=== PATIENT | female | born 1980 | race African-American/Black ===

== ENCOUNTER 2016-10-08 13:21 | Inpatient (IN) | payer MEDICAID ==
[~2016-10-08] VITALS: Ht 165.1 cm; Wt 70.8 kg
[~2016-10-08 13:21] MED LIST: FOLI-43 PO; KEPP500 PO; LACO100T2 PO; PHEN100C4 PO
[2016-10-08 14:30] LABS: CLARITY URINE CLOUDY (CLEAR); COLOR URINE DARK YELLOW (YELLOW); GLUCOSE URINE NEGATIVE (NEGATIVE); KETONES URINE 2+ (NEGATIVE); LEUKOCYTE ESTERASE URINE NEGATIVE (NEGATIVE); NITRITE URINE NEGATIVE (NEGATIVE); OCCULT BLOOD URINE NEGATIVE (NEGATIVE); PH URINE 7.5 (4.5-8.0); PROTEIN URINE NEGATIVE (NEGATIVE); SPECIFIC GRAVITY URINE 1.025 (1.005-1.030)
[2016-10-08 14:34] LABS: BASOPHILS % 1.2 % (0.0-2.0); EOSINOPHILS % 1.2 % (0.0-5.0); HEMATOCRIT. 34.6 % (36.0-48.0); HEMOGLOBIN. 11.7 g/dL (12.0-16.0); MEAN CORPUSCULAR HEMOGLOBIN 29.1 pg (28.0-32.0); MEAN CORPUSCULAR VOLUME 86.3 fL (81.0-99.0); MEAN PLATELET VOLUME 7.4 fl (7.4-10.4); MONOCYTES % 10.3 % (2.0-8.0); NEUTROPHILS % 66.3 % (40.0-76.0); PLATELET 353 x1000/uL (130-400); RED BLOOD CELL COUNT 4.01 mill/uL (4.2-5.4); RED CELL DISTRIBUTION WIDTH 12.8 % (11.6-14.6)
[2016-10-08 14:39] LABS: HCG SCREEN POSITIVE
[2016-10-08 14:40] LABS: INR 1.1
[2016-10-08 14:50] LABS: CARBON DIOXIDE 24 mEq/L (21-32); CHLORIDE 106 mEq/L (98-107); ETHANOL BLOOD < 10 mg/dL
[2016-10-08 14:56] LABS: PHENYTOIN 1.1 ug/mL (10-20)
[2016-10-08 14:59] LABS: *AMPHETAMINES SCREEN URINE NEGATIVE (NEGATIVE); *BARBITURATES SCREEN URINE NEGATIVE (NEGATIVE); *BENZODIAZEPINES SCREEN URINE NEGATIVE (NEGATIVE); *COCAINE SCREEN URINE NEGATIVE (NEGATIVE); METHADONE URINE SCREEN NEGATIVE (NEGATIVE); OPIATES URINE SCREEN NEGATIVE (NEGATIVE); PHENCYCLIDINE URINE SCREEN NEGATIVE (NEGATIVE)
[2016-10-08 15:02] LABS: CANNABINOID URINE SCREEN PRESUMTIVE POSITIVE (NEGATIVE)
[2016-10-08 15:02] LABS: CARBAMAZEPINE < 0.5 ug/mL (4-12); PHENOBARBITAL < 2.1 ug/mL (15.0-40.0); VALPROIC ACID < 3.0 ug/mL (50-100)
[2016-10-08] MEDS ORDERED: LEVETIRACETAM 500MG PREMIX 100 ML IV ONE (15:15)
[2016-10-08] MEDS ORDERED: SODIUM CHLORIDE 0.9% 1000ML BAG (SEPSIS BOLUS) IV ONE (16:15)
[2016-10-08] MEDS ORDERED: SODIUM CHLORIDE 0.9% 2,400 ML IV NR (16:15)
[2016-10-08] MEDS ORDERED: ONDANSETRON HCL 4MG/2ML VIAL IV PRN (17:30)
[2016-10-08] MEDS ORDERED: ACETAMINOPHEN 325MG TABLET PO PRN (17:30)
[2016-10-08] MEDS ORDERED: IPRATROPIUM/ALBUTEROL 0.5-3(2.5)MG/3ML NEB INH PRN (17:30)
[2016-10-08] MEDS ORDERED: POTASSIUM CHLORIDE 20MEQ TABLET SR PO NR (17:30)
[2016-10-08] MEDS ORDERED: DIPHENHYDRAMINE 50MG/ML VIAL IV PRN (17:30)
[2016-10-08 20:00] VITALS: BP 148/84
[2016-10-08 21:26] VITALS: BP 148/84
[2016-10-08] MEDS ORDERED: LEVETIRACETAM 500MG PREMIX 100 ML IV SCH ×2 (22:00→23:32)
[2016-10-08] MEDS: LEVETIRACETAM 500 MG in SODIUM CHLORIDE 0.9% 100 ML IV SCH (23:50)
[2016-10-09] VITALS (31 sets, daily range): BP systolic 108–147; BP diastolic 36–98
[2016-10-09 06:43] LABS: BASOPHILS % 1.2 % (0.0-2.0); HEMATOCRIT. 34.8 % (36.0-48.0); HEMOGLOBIN. 11.7 g/dL (12.0-16.0); LYMPHOCYTES % 28.8 % (20.0-50.0); MEAN CORPUSCULAR HEMOGLOBIN 29.3 pg (28.0-32.0); MEAN CORPUSCULAR VOLUME 86.7 fL (81.0-99.0); MEAN PLATELET VOLUME 7.6 fl (7.4-10.4); MONOCYTES % 10.7 % (2.0-8.0); NEUTROPHILS % 55.3 % (40.0-76.0); PLATELET 356 x1000/uL (130-400); RED BLOOD CELL COUNT 4.01 mill/uL (4.2-5.4); RED CELL DISTRIBUTION WIDTH 12.8 % (11.6-14.6)
[2016-10-09 07:14] LABS: CARBON DIOXIDE 22 mEq/L (21-32); CHLORIDE 107 mEq/L (98-107); HDL CHOLESTEROL 65 mg/dL (40-59); LDL CHOLESTEROL 60 mg/dL (5-100)
[2016-10-09] MEDS ORDERED: NON FORMULARY PATIENT HOME MED EA XX SCH ×2 (08:15→12:30)
[2016-10-09] MEDS: LEVETIRACETAM 500 MG in SODIUM CHLORIDE 0.9% 100 ML IV SCH ×2 (09:18→22:15)
[2016-10-09] MEDS: PRENATAL VIT/FE FUMARATE/FA TABLET PO SCH (09:18)
[2016-10-09] MEDS ORDERED: LORAZEPAM 2MG/ML CPJ IV PRN (12:15)
[2016-10-09] MEDS ORDERED: LACOSAMIDE 200 MG TABLET (VIMPAT) PO SCH (14:00)
[2016-10-09] MEDS: SODIUM CHLORIDE 0.9% 1,000 ML IV SCH (19:22)
[2016-10-09] MEDS: LACOSAMIDE 50 MG PO SCH ×2 (22:09→23:10)
[2016-10-10] VITALS (70 sets, daily range): BP systolic 88–140; BP diastolic 19–103
[2016-10-10] MEDS: SODIUM CHLORIDE 0.9% 1,000 ML IV SCH (08:56)
[2016-10-10] MEDS: LEVETIRACETAM 500 MG in SODIUM CHLORIDE 0.9% 100 ML IV SCH ×2 (08:59→22:33)
[2016-10-10] MEDS: LACOSAMIDE 50 MG PO SCH (09:35)
[2016-10-10] MEDS: PRENATAL VIT/FE FUMARATE/FA TABLET PO SCH (09:35)
[2016-10-10] MEDS: ENOXAPARIN 40MG/0.4ML SYR SUBCUT SCH (11:37)
[2016-10-10] MEDS: LACOSAMIDE 200 MG TABLET (VIMPAT) PO SCH (23:13)
[2016-10-11] VITALS: BP 105/54
[2016-10-11 04:00] VITALS: BP 111/64
[2016-10-11 08:00] VITALS: BP 116/76
[2016-10-11] MEDS: LEVETIRACETAM 500 MG in SODIUM CHLORIDE 0.9% 100 ML IV SCH (09:00)
[2016-10-11] MEDS: PRENATAL VIT/FE FUMARATE/FA TABLET PO SCH (09:00)
[2016-10-11] MEDS: ENOXAPARIN 40MG/0.4ML SYR SUBCUT SCH (09:00)
[2016-10-11] MEDS: LACOSAMIDE 200 MG TABLET (VIMPAT) PO SCH (09:00)
[2016-10-11] MEDS ORDERED: KEPP500 PO (10:42)
[2016-10-11] MEDS ORDERED: LACO200T2 PO (10:42)
[2016-10-11 11:31] VITALS: BP 125/81
[2016-10-11 12:00] VITALS: BP 125/52
== END 2016-10-11 12:23 | disposition home or self-care (01) | DRG 566 ==
LOC: ER 14:20 → EDBEDREQSVC 14:29 → EDBEDREQ 14:29 → EDBEDREQTM 14:29 → 5WST 16:12 → EDBEDREQTM 16:15 → EDBEDREQ 16:15 → ENRESERV 19:43 → MICUNO 10-09 17:00 → 8WST 10-10 18:23
PROVIDERS: ADMIT Internal Medicine; ATTEND Internal Medicine
DX: O99.351 Diseases of the nervous system complicating pregnancy, first trimester (principal); G40.911 Epilepsy, unspecified, intractable, with status epilepticus; O16.1 Unspecified maternal hypertension, first trimester; O99.011 Anemia complicating pregnancy, first trimester; E87.6 Hypokalemia; F12.90 Cannabis use, unspecified, uncomplicated; D64.9 Anemia, unspecified; O99.281 Endocrine, nutritional and metabolic diseases complicating pregnancy, first trimester; O99.321 Drug use complicating pregnancy, first trimester; Z3A.01 Less than 8 weeks gestation of pregnancy; Z91.14 Patient's other noncompliance with medication regimen; Z79.899 Other long term (current) drug therapy
CPT/HCPCS: 36415; 70551; 76801; 80053; 80061; 80156; 80165; 80184; 80185; 80305; 80339; 81001; 81025; 82962; 83605; 84703; 85025; 85610; 87040; 93005; 93970; 96365; 99285; G0482; J1650; J1953; J2060; J2405; J7030; J7040; J7050

== ENCOUNTER 2018-08-20 12:43 | Emergency (ER) | payer MEDICAID ==
[~2018-08-20] VITALS: Ht 167.6 cm; Wt 61.0 kg
[~2018-08-20 12:43] MED LIST changes: -LACO100T2 PO; +LACO200T2 PO; -PHEN100C4 PO
[2018-08-20 12:56] VITALS: BP 140/101
== END 2018-08-20 13:54 | disposition home or self-care (01) ==
LOC: ER 13:46
DX: S51.011A Laceration without foreign body of right elbow, initial encounter (principal); L08.9 Local infection of the skin and subcutaneous tissue, unspecified; G40.909 Epilepsy, unspecified, not intractable, without status epilepticus; W25.XXXA Contact with sharp glass, initial encounter; Y93.89 Activity, other specified; Y92.018 Other place in single-family (private) house as the place of occurrence of the external cause
CPT/HCPCS: 99283

== ENCOUNTER 2018-08-29 12:05 | Emergency (ER) | payer MEDICAID ==
[~2018-08-29] VITALS: Ht 167.6 cm; Wt 59.0 kg
[2018-08-29] MEDS ORDERED: TETANUS, DIPHTHERIA, PERTUSSIS VAC/PF 0.5ML (>7YR OLD) IM ONE (14:45)
[2018-08-29 15:21] VITALS: BP 134/91
== END 2018-08-29 15:58 | disposition home or self-care (01) ==
LOC: ER 12:19
DX: S41.111D Laceration without foreign body of right upper arm, subsequent encounter (principal); X58.XXXD Exposure to other specified factors, subsequent encounter
CPT/HCPCS: 90471; 90715; 99283

== ENCOUNTER 2018-12-24 12:32 | Emergency (ER) | payer MEDICAID ==
[~2018-12-24] VITALS: Ht 167.6 cm; Wt 60.0 kg
[2018-12-24] MEDS ORDERED: LORAZEPAM 2MG/ML CPJ ONE (12:55)
[2018-12-24] MEDS ORDERED: LORAZEPAM 2MG/ML CPJ IV ONE (13:00)
[2018-12-24] MEDS ORDERED: LEVETIRACETAM 500MG PREMIX 100 ML IV ONE (13:30)
[2018-12-24 14:05] LABS: BASOPHILS % 0.3 % (0.0-2.0); EOSINOPHILS % 0.3 % (0.0-5.0); HEMOGLOBIN. 13.2 g/dL (12.0-16.0); LYMPHOCYTES % 28.9 % (20.0-50.0); MEAN CORPUSCULAR HEMOGLOBIN 28.1 pg (28.0-32.0); MEAN CORPUSCULAR VOLUME 85.1 fL (81.0-99.0); MEAN PLATELET VOLUME 7.2 fl (7.4-10.4); NEUTROPHILS % 64.5 % (40.0-76.0); PLATELET 432 x1000/uL (130-400); RED BLOOD CELL COUNT 4.71 mill/uL (4.2-5.4); RED CELL DISTRIBUTION WIDTH 15.2 % (11.6-14.6)
[2018-12-24 14:12] LABS: CHLORIDE 109 mEq/L (98-107)
[2018-12-24 14:14] LABS: HCG SCREEN NEGATIVE
[2018-12-24 15:05] VITALS: BP 124/82
== END 2018-12-24 15:44 | disposition home or self-care (01) ==
LOC: ER 12:32
DX: G40.909 Epilepsy, unspecified, not intractable, without status epilepticus (principal); I10 Essential (primary) hypertension
CPT/HCPCS: 36415; 80053; 84703; 85025; 96374; 96375; 99283; J1953; J2060

== ENCOUNTER 2019-01-01 07:15 | Emergency (ER) | payer MEDICAID ==
[~2019-01-01] VITALS: Ht 165.1 cm; Wt 68.0 kg
[2019-01-01] MEDS ORDERED: SODIUM CHLORIDE 0.9% 1,000 ML IV ONE (07:34)
[2019-01-01] MEDS ORDERED: LEVETIRACETAM 500MG PREMIX 100 ML IV ONE (07:45)
[2019-01-01 08:13] LABS: BASOPHILS % 0.3 % (0.0-2.0); EOSINOPHILS % 1.7 % (0.0-5.0); HEMATOCRIT. 35.7 % (36.0-48.0); HEMOGLOBIN. 11.7 g/dL (12.0-16.0); LYMPHOCYTES % 29.5 % (20.0-50.0); MEAN CORPUSCULAR HEMOGLOBIN 28.1 pg (28.0-32.0); MEAN PLATELET VOLUME 7.9 fl (7.4-10.4); MONOCYTES % 8.7 % (2.0-8.0); NEUTROPHILS % 59.8 % (40.0-76.0); PLATELET 315 x1000/uL (130-400); RED BLOOD CELL COUNT 4.16 mill/uL (4.2-5.4); RED CELL DISTRIBUTION WIDTH 15.1 % (11.6-14.6)
[2019-01-01 08:15] LABS: CLARITY URINE CLEAR (CLEAR); COLOR URINE YELLOW (YELLOW); KETONES URINE 1+ (NEGATIVE); LEUKOCYTE ESTERASE URINE NEGATIVE (NEGATIVE); NITRITE URINE NEGATIVE (NEGATIVE); OCCULT BLOOD URINE NEGATIVE (NEGATIVE); PH URINE 5.5 (4.5-8.0); PROTEIN URINE 1+ (NEGATIVE); UROBILINOGEN URINE 0.2 E.U./dL (0.2-1.0)
[2019-01-01 08:20] LABS: CHLORIDE 111 mEq/L (98-107)
[2019-01-01 08:23] LABS: ETHANOL BLOOD 186 mg/dL
[2019-01-01 09:13] LABS: *AMPHETAMINES SCREEN URINE NEGATIVE (NEGATIVE); *BARBITURATES SCREEN URINE NEGATIVE (NEGATIVE)
[2019-01-01 09:14] LABS: *BENZODIAZEPINES SCREEN URINE PRESUMTIVE POSITIVE (NEGATIVE); *COCAINE SCREEN URINE NEGATIVE (NEGATIVE); CANNABINOID URINE SCREEN PRESUMTIVE POSITIVE (NEGATIVE); METHADONE URINE SCREEN NEGATIVE (NEGATIVE); OPIATES URINE SCREEN NEGATIVE (NEGATIVE); PHENCYCLIDINE URINE SCREEN NEGATIVE (NEGATIVE)
[2019-01-01 10:45] VITALS: BP 130/87
== END 2019-01-01 10:45 | disposition home or self-care (01) ==
LOC: ER 07:15
DX: G40.909 Epilepsy, unspecified, not intractable, without status epilepticus (principal); I10 Essential (primary) hypertension
CPT/HCPCS: 36415; 70450; 71045; 80053; 80305; 80320; 81003; 81025; 85025; 96365; 99284; J1953; J7030; G0480

== ENCOUNTER 2019-03-12 10:44 | Emergency (ER) | payer MEDICAID ==
[~2019-03-12] VITALS: Ht 170.2 cm; Wt 73.0 kg
[2019-03-12] MEDS ORDERED: SODIUM CHLORIDE 0.9% 1,000 ML IV ONE (10:56)
[2019-03-12 11:32] LABS: BASOPHILS % 1.5 % (0.0-2.0); CHLORIDE 106 mEq/L (98-107); EOSINOPHILS % 2.2 % (0.0-5.0); HEMOGLOBIN. 12.1 g/dL (12.0-16.0); MEAN CORPUSCULAR HEMOGLOBIN 28.5 pg (28.0-32.0); MEAN CORPUSCULAR VOLUME 84.8 fL (81.0-99.0); MONOCYTES % 10.5 % (2.0-8.0); NEUTROPHILS % 44.8 % (40.0-76.0); PLATELET 325 x1000/uL (130-400); RED BLOOD CELL COUNT 4.25 mill/uL (4.2-5.4); RED CELL DISTRIBUTION WIDTH 15.4 % (11.6-14.6)
[2019-03-12 11:36] LABS: ETHANOL BLOOD < 10 mg/dL
[2019-03-12 12:03] LABS: BG BASE EXCESS 2.1 mmol/L (-2.0-2.0); BG CARBOXYHEMOGLOBIN 0.4 % (0.5-1.5); BG DEOXYHEMOGLOBIN 3.4 % (0.0-5.0); BG FRACTION INSPIRED OXYGEN 21; BG HCO3 ACT 26.7 mmol/L (22.0-26.0); BG METHEMOGLOBIN 0.3 % (0.0-1.5); BG OXYGEN SATURATION 96.6 % (92.0-98.5); BG OXYHEMOGLOBIN 95.9 % (94.0-97.0); BG PCO2 41.4 mmHg (35.0-45.0); BG PH 7.427 (7.350-7.450); BG SAMPLE SITE RIGHT BRACHIAL; BG TOTAL HEMOGLOBIN 11.5 g/dL (12.0-18.0); BG VENT MODE ROOM AIR
[2019-03-12] MEDS ORDERED: LEVETIRACETAM 500MG PREMIX 100 ML IV ONE (12:15)
[2019-03-12 12:30] VITALS: BP 141/80
== END 2019-03-12 12:32 | disposition home or self-care (01) ==
LOC: ER 10:44
DX: G40.909 Epilepsy, unspecified, not intractable, without status epilepticus (principal); I10 Essential (primary) hypertension; Z91.14 Patient's other noncompliance with medication regimen
CPT/HCPCS: 36415; 36600; 80053; 80320; 82375; 82805; 82962; 83880; 85025; 96374; 99283; J7030; G0480

== ENCOUNTER 2019-03-27 09:34 | Inpatient (IN) | payer MEDICAID ==
[~2019-03-27] VITALS: Ht 170.2 cm; Wt 59.0 kg
[2019-03-27] MEDS ORDERED: SODIUM CHLORIDE 0.9% 1,000 ML IV ONE (10:29)
[2019-03-27 10:38] LABS: BASOPHILS % 2.3 % (0.0-2.0); EOSINOPHILS % 1.4 % (0.0-5.0); HEMATOCRIT. 39.2 % (36.0-48.0); HEMOGLOBIN. 12.7 g/dL (12.0-16.0); LYMPHOCYTES % 42.7 % (20.0-50.0); MEAN CORPUSCULAR HEMOGLOBIN 27.8 pg (28.0-32.0); MEAN CORPUSCULAR VOLUME 85.7 fL (81.0-99.0); MEAN PLATELET VOLUME 8.9 fl (7.4-10.4); MONOCYTES % 8.3 % (2.0-8.0); NEUTROPHILS % 45.3 % (40.0-76.0); PLATELET 347 x1000/uL (130-400); RED BLOOD CELL COUNT 4.57 mill/uL (4.2-5.4); RED CELL DISTRIBUTION WIDTH 15.8 % (11.6-14.6)
[2019-03-27 10:42] LABS: CLARITY URINE CLEAR (CLEAR); COLOR URINE YELLOW (YELLOW); KETONES URINE TRACE (NEGATIVE); LEUKOCYTE ESTERASE URINE NEGATIVE (NEGATIVE); NITRITE URINE NEGATIVE (NEGATIVE); OCCULT BLOOD URINE NEGATIVE (NEGATIVE); PH URINE 5.5 (4.5-8.0); PROTEIN URINE NEGATIVE (NEGATIVE); UROBILINOGEN URINE 0.2 E.U./dL (0.2-1.0)
[2019-03-27 10:47] LABS: CHLORIDE 108 mEq/L (98-107)
[2019-03-27 10:51] LABS: ETHANOL BLOOD 65 mg/dL
[2019-03-27 10:58] LABS: HCG SCREEN NEGATIVE
[2019-03-27 10:59] LABS: *COCAINE SCREEN URINE NEGATIVE (NEGATIVE)
[2019-03-27 11:00] LABS: METHADONE URINE SCREEN NEGATIVE (NEGATIVE); PHENCYCLIDINE URINE SCREEN NEGATIVE (NEGATIVE)
[2019-03-27 11:01] LABS: *AMPHETAMINES SCREEN URINE NEGATIVE (NEGATIVE); *BARBITURATES SCREEN URINE NEGATIVE (NEGATIVE)
[2019-03-27 11:02] LABS: *BENZODIAZEPINES SCREEN URINE NEGATIVE (NEGATIVE)
[2019-03-27] MEDS ORDERED: HYDROCODONE/ACETAMINOPHEN 5/325MG TABLET PO ONE (11:30)
[2019-03-27] MEDS ORDERED: LEVETIRACETAM 1000MG/100ML 100 ML IV ONE (11:30)
[2019-03-27 11:45] LABS: OPIATES URINE SCREEN NEGATIVE (NEGATIVE)
[2019-03-27 11:48] LABS: CANNABINOID URINE SCREEN PRESUMTIVE POSITIVE (NEGATIVE)
[2019-03-27] MEDS ORDERED: LORAZEPAM 2MG/ML CPJ IV ONE (12:30)
[2019-03-27] MEDS ORDERED: DEXT 5%/0.45% NACL KCL 20MEQ/L 1,000 ML IV ONE (13:34)
[2019-03-27] MEDS ORDERED: CLONIDINE 0.1MG TABLET PO PRN (14:00)
[2019-03-27] MEDS ORDERED: ONDANSETRON HCL 4MG/2ML INJ IV PRN (14:00)
[2019-03-27] MEDS ORDERED: LORAZEPAM 2MG/ML CPJ IV PRN (14:00)
[2019-03-27] MEDS ORDERED: DIPHENHYDRAMINE 50MG/ML VIAL IV PRN (14:00)
[2019-03-27] MEDS ORDERED: ACETAMINOPHEN 325MG TABLET PO PRN (14:00)
[2019-03-27] MEDS ORDERED: IPRATROPIUM/ALBUTEROL 0.5-3(2.5)MG/3ML NEB HHN PRN (14:00)
[2019-03-27 20:00] VITALS: BP 136/86
[2019-03-27] MEDS ORDERED: ENOXAPARIN 40MG/0.4ML SYR SUBCUT SCH (20:00)
[2019-03-27] MEDS: LEVETIRACETAM 500MG PREMIX 100 ML IV SCH (21:40)
[2019-03-28] VITALS: BP 123/70
[2019-03-28 04:00] VITALS: BP 132/86
[2019-03-28 07:33] LABS: CHLORIDE 107 mEq/L (98-107)
[2019-03-28 07:38] LABS: BASOPHILS % 1.2 % (0.0-2.0); EOSINOPHILS % 3.2 % (0.0-5.0); HEMATOCRIT. 33.6 % (36.0-48.0); HEMOGLOBIN. 10.9 g/dL (12.0-16.0); LYMPHOCYTES % 43.2 % (20.0-50.0); MEAN CORPUSCULAR HEMOGLOBIN 27.8 pg (28.0-32.0); MEAN CORPUSCULAR VOLUME 85.7 fL (81.0-99.0); MEAN PLATELET VOLUME 8.4 fl (7.4-10.4); MONOCYTES % 13.5 % (2.0-8.0); NEUTROPHILS % 38.9 % (40.0-76.0); PLATELET 307 x1000/uL (130-400); RED BLOOD CELL COUNT 3.91 mill/uL (4.2-5.4); RED CELL DISTRIBUTION WIDTH 15.7 % (11.6-14.6)
[2019-03-28 07:41] LABS: LDL CHOLESTEROL 77 mg/dL (5-100)
[2019-03-28 07:43] LABS: HDL CHOLESTEROL 69 mg/dL (40-59)
[2019-03-28 08:00] VITALS: BP 129/73
[2019-03-28] MEDS: LEVETIRACETAM 500MG PREMIX 100 ML IV SCH (08:58)
[2019-03-28 12:16] VITALS: BP 129/73
== END 2019-03-28 14:25 | disposition home or self-care (01) | DRG 53 ==
LOC: ER 09:34 → 7WST 13:35 → EDBEDREQ 13:57 → ENRESERV 18:38
PROVIDERS: ADMIT Internal Medicine; ATTEND Internal Medicine
DX: G40.409 Other generalized epilepsy and epileptic syndromes, not intractable, without status epilepticus (principal); F10.129 Alcohol abuse with intoxication, unspecified; I10 Essential (primary) hypertension; Y90.3 Blood alcohol level of 60-79 mg/100 ml; Z79.899 Other long term (current) drug therapy; Z71.41 Alcohol abuse counseling and surveillance of alcoholic
CPT/HCPCS: 36415; 80048; 80053; 80061; 80305; 80320; 81003; 84443; 84703; 85025; 93970; 94640; 96365; 99291; J1650; J1953; J2060; J2405; J7030; G0480

== ENCOUNTER 2019-03-29 10:44 | Inpatient (IN) | payer MEDICAID ==
[~2019-03-29] VITALS: Ht 170.2 cm; Wt 73.0 kg
[2019-03-29] MEDS ORDERED: LORAZEPAM 2MG/ML CPJ ONE ×2 (10:52→11:03)
[2019-03-29] MEDS ORDERED: LORAZEPAM 2MG/ML CPJ IV ONE (11:00)
[2019-03-29] MEDS ORDERED: LEVETIRACETAM 1000MG/100ML 100 ML IV ONE (11:00)
[2019-03-29 11:38] LABS: BASOPHILS % 1.4 % (0.0-2.0); HEMATOCRIT. 32.3 % (36.0-48.0); HEMOGLOBIN. 10.6 g/dL (12.0-16.0); LYMPHOCYTES % 30.7 % (20.0-50.0); MEAN CORPUSCULAR VOLUME 85.1 fL (81.0-99.0); MEAN PLATELET VOLUME 7.3 fl (7.4-10.4); MONOCYTES % 10.8 % (2.0-8.0); NEUTROPHILS % 54.1 % (40.0-76.0); PLATELET 314 x1000/uL (130-400); RED BLOOD CELL COUNT 3.79 mill/uL (4.2-5.4); RED CELL DISTRIBUTION WIDTH 15.7 % (11.6-14.6)
[2019-03-29 11:42] LABS: CHLORIDE 110 mEq/L (98-107)
[2019-03-29 11:45] LABS: ETHANOL BLOOD 62 mg/dL
[2019-03-29 12:18] LABS: CLARITY URINE CLOUDY (CLEAR); COLOR URINE YELLOW (YELLOW); KETONES URINE TRACE (NEGATIVE); LEUKOCYTE ESTERASE URINE 1+ (NEGATIVE); NITRITE URINE NEGATIVE (NEGATIVE); OCCULT BLOOD URINE NEGATIVE (NEGATIVE); PH URINE 6.5 (4.5-8.0); PROTEIN URINE NEGATIVE (NEGATIVE); SPECIFIC GRAVITY URINE 1.021 (1.005-1.030)
[2019-03-29 12:37] LABS: *AMPHETAMINES SCREEN URINE NEGATIVE (NEGATIVE); *BARBITURATES SCREEN URINE NEGATIVE (NEGATIVE); METHADONE URINE SCREEN NEGATIVE (NEGATIVE); PHENCYCLIDINE URINE SCREEN NEGATIVE (NEGATIVE)
[2019-03-29 12:38] LABS: *COCAINE SCREEN URINE NEGATIVE (NEGATIVE)
[2019-03-29 12:40] LABS: OPIATES URINE SCREEN NEGATIVE (NEGATIVE)
[2019-03-29 12:44] LABS: *BENZODIAZEPINES SCREEN URINE PRESUMTIVE POSITIVE (NEGATIVE); CANNABINOID URINE SCREEN PRESUMTIVE POSITIVE (NEGATIVE)
[2019-03-29] MEDS ORDERED: ONDANSETRON HCL 4MG/2ML INJ IV PRN (17:45)
[2019-03-29] MEDS ORDERED: DOCUSATE SODIUM 100MG CAPSULE PO PRN (17:45)
[2019-03-29] MEDS ORDERED: ACETAMINOPHEN 325MG TABLET PO PRN (17:45)
[2019-03-29] MEDS ORDERED: NON FORMULARY PATIENT HOME MED XX SCH (17:45)
[2019-03-29] MEDS ORDERED: LORAZEPAM 0.5MG TABLET PO PRN (17:45)
[2019-03-29] MEDS ORDERED: GUAIFENESIN 200MG/10ML SUGAR FREE UDC PO PRN (17:45)
[2019-03-29] MEDS ORDERED: HYDROCODONE/ACETAMINOPHEN 5/325MG TABLET PO PRN (17:45)
[2019-03-29] MEDS ORDERED: IPRATROPIUM/ALBUTEROL 0.5-3(2.5)MG/3ML NEB HHN PRN (17:45)
[2019-03-29 18:33] LABS: HCG SCREEN NEGATIVE
[2019-03-29 22:10] VITALS: BP 151/93
[2019-03-29 22:30] VITALS: BP 151/93
[2019-03-29] MEDS: CHLORDIAZEPOXIDE 25MG CAPSULE PO SCH (22:51)
[2019-03-29] MEDS ORDERED: MVI, ADULT NO.1 10 ML, FOLIC ACID 1 MG, THIAMINE HCL 100 MG in SODIUM CHLORIDE 0.9% 1,0... IV SCH ×4 (23:50)
[2019-03-30] VITALS (19 sets, daily range): BP systolic 125–164; BP diastolic 63–105
[2019-03-30] MEDS: LEVETIRACETAM 500 MG in SODIUM CHLORIDE 0.9% 100 ML IV SCH ×2 (01:20→08:25)
[2019-03-30] MEDS: SODIUM CHLORIDE 0.9% 1,000 ML IV SCH ×3 (01:21→12:54)
[2019-03-30] MEDS: CHLORDIAZEPOXIDE 25MG CAPSULE PO SCH ×3 (06:27→23:07)
[2019-03-30 07:51] LABS: TOTAL IRON BINDING CAPACITY 244 ug/dL (250-450)
[2019-03-30] MEDS: LORAZEPAM 2MG/ML CPJ IV PRN ×2 (08:10→13:57)
[2019-03-30 08:29] LABS: VITAMIN B12 SERUM 715 pg/mL (211-911)
[2019-03-30 08:33] LABS: FOLIC ACID (FOLATE) SERUM > 20.00 ng/mL (>5.38)
[2019-03-30] MEDS: FOLIC ACID 1MG TABLET PO SCH (08:41)
[2019-03-30 11:52] LABS: FERRITIN 35 ng/mL (10-291)
[2019-03-30] MEDS: CLONIDINE 0.1MG TABLET PO PRN (14:54)
[2019-03-30] MEDS: LACOSAMIDE 100 MG TABLET PO SCH ×2 (17:47→23:07)
[2019-03-30] MEDS ORDERED: LACOSAMIDE 100 MG TABLET PO SCH (21:00)
[2019-03-30] MEDS: LEVETIRACETAM 1,000 MG in SODIUM CHLORIDE 0.9% 100 ML IV SCH (23:07)
[2019-03-31] VITALS: BP 127/79
[2019-03-31] MEDS: SODIUM CHLORIDE 0.9% 1,000 ML IV SCH (02:32)
[2019-03-31 04:00] VITALS: BP 140/95
[2019-03-31] MEDS: CHLORDIAZEPOXIDE 25MG CAPSULE PO SCH ×3 (06:08→21:46)
[2019-03-31] MEDS: CLONIDINE 0.1MG TABLET PO PRN ×2 (06:18→12:40)
[2019-03-31 08:00] VITALS: BP_SYST 138; BP_SYST 144; BP_DIAS 91; BP_DIAS 96
[2019-03-31] MEDS: LEVETIRACETAM 1,000 MG in SODIUM CHLORIDE 0.9% 100 ML IV SCH ×2 (09:41→21:46)
[2019-03-31] MEDS: FOLIC ACID 1MG TABLET PO SCH (09:41)
[2019-03-31] MEDS: LACOSAMIDE 100 MG TABLET PO SCH ×2 (09:42→21:46)
[2019-03-31] MEDS: POLYETHYLENE GLYCOL 3350 (17GM) 1 DOSE PACK PO SCH (10:00)
[2019-03-31] MEDS: LORAZEPAM 2MG/ML CPJ IV PRN ×2 (11:35→17:15)
[2019-03-31 12:00] VITALS: BP 138/91
[2019-03-31 16:00] VITALS: BP 119/81
[2019-03-31 20:00] VITALS: BP 120/84
[2019-04-01] VITALS: BP 130/85
[2019-04-01] MEDS: CHLORDIAZEPOXIDE 25MG CAPSULE PO SCH (03:37)
[2019-04-01 04:00] VITALS: BP 137/68
[2019-04-01] MEDS: POLYETHYLENE GLYCOL 3350 (17GM) 1 DOSE PACK PO SCH (09:25)
[2019-04-01] MEDS: LEVETIRACETAM 1,000 MG in SODIUM CHLORIDE 0.9% 100 ML IV SCH (09:25)
[2019-04-01] MEDS: FOLIC ACID 1MG TABLET PO SCH (09:25)
[2019-04-01] MEDS: LACOSAMIDE 100 MG TABLET PO SCH (09:25)
[2019-04-01] MEDS ORDERED: LEVE1000 MT (10:58)
[2019-04-01 11:37] VITALS: BP 123/85
== END 2019-04-01 13:12 | disposition home or self-care (01) | DRG 53 ==
LOC: ER 10:53 → 5WST 13:49 → EDBEDREQ 13:52 → ENRESERV 20:12
PROVIDERS: ADMIT Internal Medicine; ATTEND Internal Medicine
DX: G40.89 Other seizures (principal); A59.9 Trichomoniasis, unspecified; D64.9 Anemia, unspecified; F10.20 Alcohol dependence, uncomplicated; D72.821 Monocytosis (symptomatic); F12.90 Cannabis use, unspecified, uncomplicated; I10 Essential (primary) hypertension; Y90.3 Blood alcohol level of 60-79 mg/100 ml; Z91.14 Patient's other noncompliance with medication regimen; Z91.19 Patient's noncompliance with other medical treatment and regimen; Z79.899 Other long term (current) drug therapy
CPT/HCPCS: 36415; 70551; 71045; 80053; 80305; 80320; 80339; 81003; 82607; 82728; 82746; 82962; 83540; 83550; 84703; 85025; 93005; 99285; J1953; J2060; J3411; J3490; J7030; J7050; G0480

== ENCOUNTER 2019-04-19 04:42 | Inpatient (IN) | payer MEDICAID ==
[~2019-04-19] VITALS: Ht 170.2 cm; Wt 64.0 kg
[~2019-04-19 04:42] MED LIST changes: -KEPP500 PO; +LEVE1000 MT
[2019-04-19] MEDS ORDERED: LORAZEPAM 2MG/ML CPJ ONE (04:52)
[2019-04-19] MEDS ORDERED: LORAZEPAM 2MG/ML CPJ IV ONE ×2 (05:00→05:15)
[2019-04-19 05:25] LABS: CHLORIDE 108 mEq/L (98-107)
[2019-04-19 05:27] LABS: BASOPHILS % 0.8 % (0.0-2.0); EOSINOPHILS % 0.9 % (0.0-5.0); HEMATOCRIT. 34.8 % (36.0-48.0); HEMOGLOBIN. 11.7 g/dL (12.0-16.0); LYMPHOCYTES % 18.9 % (20.0-50.0); MEAN CORPUSCULAR HEMOGLOBIN 28.7 pg (28.0-32.0); MEAN CORPUSCULAR VOLUME 85.2 fL (81.0-99.0); MEAN PLATELET VOLUME 7.6 fl (7.4-10.4); MONOCYTES % 14.8 % (2.0-8.0); NEUTROPHILS % 64.6 % (40.0-76.0); PLATELET 273 x1000/uL (130-400); RED BLOOD CELL COUNT 4.08 mill/uL (4.2-5.4); RED CELL DISTRIBUTION WIDTH 15.5 % (11.6-14.6)
[2019-04-19 05:28] LABS: ETHANOL BLOOD < 10 mg/dL
[2019-04-19 06:03] LABS: CLARITY URINE CLOUDY (CLEAR); COLOR URINE YELLOW (YELLOW); KETONES URINE 1+ (NEGATIVE); LEUKOCYTE ESTERASE URINE TRACE (NEGATIVE); NITRITE URINE NEGATIVE (NEGATIVE); OCCULT BLOOD URINE TRACE (NEGATIVE); PH URINE 5.5 (4.5-8.0); PROTEIN URINE TRACE (NEGATIVE); SPECIFIC GRAVITY URINE 1.026 (1.005-1.030); UROBILINOGEN URINE 0.2 E.U./dL (0.2-1.0)
[2019-04-19 06:27] LABS: *AMPHETAMINES SCREEN URINE NEGATIVE (NEGATIVE); *BARBITURATES SCREEN URINE NEGATIVE (NEGATIVE); *COCAINE SCREEN URINE NEGATIVE (NEGATIVE); METHADONE URINE SCREEN NEGATIVE (NEGATIVE); OPIATES URINE SCREEN NEGATIVE (NEGATIVE)
[2019-04-19 06:28] LABS: PHENCYCLIDINE URINE SCREEN NEGATIVE (NEGATIVE)
[2019-04-19] MEDS ORDERED: LEVETIRACETAM 500MG PREMIX 100 ML IV ONE (06:30)
[2019-04-19 06:34] LABS: *BENZODIAZEPINES SCREEN URINE PRESUMTIVE POSITIVE (NEGATIVE); CANNABINOID URINE SCREEN PRESUMTIVE POSITIVE (NEGATIVE)
[2019-04-19 06:45] LABS: HCG SCREEN NEGATIVE
[2019-04-19] MEDS ORDERED: LORAZEPAM 2MG/ML CPJ IV PRN (11:15)
[2019-04-19] MEDS ORDERED: ONDANSETRON HCL 4MG/2ML INJ IV PRN (11:15)
[2019-04-19] MEDS ORDERED: ACETAMINOPHEN 325MG TABLET PO PRN (11:15)
[2019-04-19] MEDS ORDERED: FLUCONAZOLE 150MG TABLET PO NR (14:00)
[2019-04-19] MEDS ORDERED: AMLO10TA80 PO (14:12)
[2019-04-19 18:07] VITALS: BP 110/70
[2019-04-19] MEDS: NEOMYCIN/BACITRACIN/POLYMYXIN OINT 14GM TOP SCH (19:15)
[2019-04-19 20:00] VITALS: BP 123/85
[2019-04-19] MEDS ORDERED: LEVETIRACETAM 500MG TABLET PO SCH (21:00)
[2019-04-19] MEDS: LACOSAMIDE 200 MG PO SCH (22:04)
[2019-04-20] VITALS: BP 115/77
[2019-04-20 04:00] VITALS: BP 114/77
[2019-04-20 06:11] LABS: EOSINOPHILS % 2.2 % (0.0-5.0); HEMATOCRIT. 33.2 % (36.0-48.0); HEMOGLOBIN. 11.3 g/dL (12.0-16.0); LYMPHOCYTES % 38.4 % (20.0-50.0); MEAN CORPUSCULAR HEMOGLOBIN 28.8 pg (28.0-32.0); MEAN CORPUSCULAR VOLUME 85.1 fL (81.0-99.0); MEAN PLATELET VOLUME 8.5 fl (7.4-10.4); MONOCYTES % 13.7 % (2.0-8.0); NEUTROPHILS % 44.7 % (40.0-76.0); PLATELET 273 x1000/uL (130-400); RED BLOOD CELL COUNT 3.91 mill/uL (4.2-5.4); RED CELL DISTRIBUTION WIDTH 15.6 % (11.6-14.6)
[2019-04-20 08:00] VITALS: BP 127/93
[2019-04-20 08:44] LABS: CHLORIDE 108 mEq/L (98-107)
[2019-04-20] MEDS: LACOSAMIDE 200 MG PO SCH ×2 (10:28→21:34)
[2019-04-20] MEDS: LEVETIRACETAM 500MG PREMIX 100 ML IV SCH ×2 (10:28→20:40)
[2019-04-20] MEDS: NEOMYCIN/BACITRACIN/POLYMYXIN OINT 14GM TOP SCH ×2 (10:28→21:34)
[2019-04-20 12:00] VITALS: BP 129/85
[2019-04-20] MEDS ORDERED: FLUCONAZOLE 100MG TABLET PO SCH (13:15)
[2019-04-20 16:00] VITALS: BP 120/85
[2019-04-20] MEDS: FLUCONAZOLE 100MG TABLET PO SCH (16:30)
[2019-04-20 20:00] VITALS: BP 141/99
[2019-04-21] VITALS: BP 132/92
[2019-04-21 04:00] VITALS: BP 148/99
[2019-04-21 08:00] VITALS: BP 125/88
[2019-04-21] MEDS: FLUCONAZOLE 100MG TABLET PO SCH (08:57)
[2019-04-21] MEDS: NEOMYCIN/BACITRACIN/POLYMYXIN OINT 14GM TOP SCH (08:57)
[2019-04-21] MEDS: LACOSAMIDE 200 MG PO SCH (08:57)
[2019-04-21] MEDS: LEVETIRACETAM 500MG PREMIX 100 ML IV SCH (08:57)
[2019-04-21] MEDS ORDERED: FLUC100T PO (10:53)
[2019-04-21 11:03] VITALS: BP 125/88
[2019-04-21] MEDS ORDERED: LEVETIRACETAM 500MG TABLET PO SCH (21:00)
== END 2019-04-21 11:54 | disposition home or self-care (01) | DRG 53 ==
LOC: ER 04:42 → 5WST 07:54 → ENRESERV 08:05 → ER 08:35
PROVIDERS: ADMIT Internal Medicine; ATTEND Internal Medicine
DX: G40.89 Other seizures (principal); E87.8 Other disorders of electrolyte and fluid balance, not elsewhere classified; S09.90XA Unspecified injury of head, initial encounter; E87.6 Hypokalemia; I10 Essential (primary) hypertension; W18.39XA Other fall on same level, initial encounter; F12.90 Cannabis use, unspecified, uncomplicated; J34.89 Other specified disorders of nose and nasal sinuses; Z79.899 Other long term (current) drug therapy; Y93.89 Activity, other specified; Y92.89 Other specified places as the place of occurrence of the external cause; Y99.8 Other external cause status
CPT/HCPCS: 36415; 70486; 71045; 80048; 80053; 80185; 80305; 80320; 81003; 82140; 82962; 84703; 85025; 93005; 99285; J1953; J2060; G0480

== ENCOUNTER 2019-07-01 02:00 | Emergency (ER) | payer MEDICAID ==
[~2019-07-01] VITALS: Ht 170.2 cm; Wt 73.0 kg
[~2019-07-01 02:00] MED LIST changes: +AMLO10TA80 PO; +FLUC100T PO
[2019-07-01] MEDS ORDERED: SODIUM CHLORIDE 0.9% 500 ML IV ONE (02:32)
[2019-07-01] MEDS ORDERED: LORAZEPAM 2MG/ML CPJ IM ONE (03:30)
[2019-07-01] MEDS ORDERED: LORAZEPAM 2MG/ML CPJ IV ONE (03:30)
[2019-07-01] MEDS ORDERED: LORAZEPAM 2MG/ML CPJ ONE (03:32)
[2019-07-01] MEDS ORDERED: LEVETIRACETAM 500MG PREMIX 100 ML IV ONE (03:45)
[2019-07-01 04:05] LABS: BASOPHILS % 1.7 % (0.0-2.0); CHLORIDE 109 mEq/L (98-107); EOSINOPHILS % 1.2 % (0.0-5.0); HEMATOCRIT. 39.7 % (36.0-48.0); HEMOGLOBIN. 13.1 g/dL (12.0-16.0); LYMPHOCYTES % 56.7 % (20.0-50.0); MEAN CORPUSCULAR HEMOGLOBIN 28.3 pg (28.0-32.0); MEAN CORPUSCULAR VOLUME 85.7 fL (81.0-99.0); MEAN PLATELET VOLUME 8.9 fl (7.4-10.4); MONOCYTES % 8.4 % (2.0-8.0); PLATELET 356 x1000/uL (130-400); RED BLOOD CELL COUNT 4.63 mill/uL (4.2-5.4); RED CELL DISTRIBUTION WIDTH 15.4 % (11.6-14.6)
[2019-07-01 04:55] VITALS: BP 115/79
== END 2019-07-01 05:45 | disposition home or self-care (01) ==
LOC: ER 02:00
DX: R56.9 Unspecified convulsions (principal); I10 Essential (primary) hypertension; F99 Mental disorder, not otherwise specified; Z91.14 Patient's other noncompliance with medication regimen; Z79.899 Other long term (current) drug therapy
CPT/HCPCS: 36415; 80048; 81025; 85025; 96365; 96372; 96375; 99284; J1953; J2060; J7030

== ENCOUNTER 2019-07-01 12:41 | Emergency (ER) | payer MEDICAID ==
[~2019-07-01] VITALS: Ht 165.1 cm; Wt 65.0 kg
[2019-07-01 13:01] VITALS: BP 138/89
[2019-07-01] MEDS ORDERED: LEVETIRACETAM 500MG PREMIX 100 ML IV ONE (13:30)
[2019-07-01] MEDS ORDERED: DEXTROSE 50% WATER 50ML SYRINGE IV ONE (13:45)
[2019-07-01 14:16] LABS: CHLORIDE 108 mEq/L (98-107); HEMATOCRIT. 34.8 % (36.0-48.0); HEMOGLOBIN. 11.4 g/dL (12.0-16.0); MEAN CORPUSCULAR HEMOGLOBIN 28.4 pg (28.0-32.0); PLATELET 301 x1000/uL (130-400); RED CELL DISTRIBUTION WIDTH 15.6 % (11.6-14.6)
[2019-07-01] MEDS ORDERED: PHENYTOIN SODIUM 1,000 MG in SODIUM CHLORIDE 0.9% 100 ML IV ONE (15:00)
[2019-07-01 15:47] LABS: PLATELET ESTIMATE NORMAL
== END 2019-07-01 14:56 | disposition left against medical advice (07) ==
LOC: ER 13:09
DX: G40.909 Epilepsy, unspecified, not intractable, without status epilepticus (principal); E16.2 Hypoglycemia, unspecified; I10 Essential (primary) hypertension; Z88.8 Allergy status to other drugs, medicaments and biological substances
CPT/HCPCS: 36415; 80053; 80185; 82962; 85025; 96365; 96375; 99284; J1953

== ENCOUNTER 2019-07-22 01:17 | Emergency (ER) | payer MEDICAID ==
[~2019-07-22] VITALS: Ht 172.7 cm; Wt 59.0 kg
[2019-07-22] MEDS ORDERED: LEVETIRACETAM 500MG PREMIX 100 ML IV ONE (02:00)
[2019-07-22 03:19] VITALS: BP 132/84
== END 2019-07-22 03:38 | disposition home or self-care (01) ==
LOC: ER 01:17
DX: G40.909 Epilepsy, unspecified, not intractable, without status epilepticus (principal); I10 Essential (primary) hypertension; Z88.8 Allergy status to other drugs, medicaments and biological substances
CPT/HCPCS: 96365; 99284; J1953

== ENCOUNTER 2019-07-24 08:49 | Emergency (ER) | payer MEDICAID ==
[~2019-07-24] VITALS: Ht 170.2 cm; Wt 63.0 kg
[2019-07-24] MEDS ORDERED: SODIUM CHLORIDE 0.9% 1,000 ML IV ONE (09:54)
[2019-07-24] MEDS ORDERED: DIAZEPAM 5 MG/ML 2ML CPJ IV ONE (10:15)
[2019-07-24 10:28] LABS: HEMATOCRIT. 34.1 % (36.0-48.0); HEMOGLOBIN. 11.5 g/dL (12.0-16.0); MEAN CORPUSCULAR HEMOGLOBIN 28.7 pg (28.0-32.0); MEAN CORPUSCULAR VOLUME 84.9 fL (81.0-99.0); MEAN PLATELET VOLUME 7.4 fl (7.4-10.4); PLATELET 334 x1000/uL (130-400); RED BLOOD CELL COUNT 4.01 mill/uL (4.2-5.4)
[2019-07-24 10:38] LABS: CHLORIDE 108 mEq/L (98-107)
[2019-07-24 10:42] LABS: ETHANOL BLOOD 13 mg/dL
[2019-07-24] MEDS ORDERED: LEVETIRACETAM 500MG PREMIX 100 ML IV ONE (10:45)
[2019-07-24 10:53] LABS: CLARITY URINE CLOUDY (CLEAR); COLOR URINE YELLOW (YELLOW); KETONES URINE NEGATIVE (NEGATIVE); LEUKOCYTE ESTERASE URINE NEGATIVE (NEGATIVE); NITRITE URINE NEGATIVE (NEGATIVE); OCCULT BLOOD URINE NEGATIVE (NEGATIVE); PH URINE 6.5 (4.5-8.0); PROTEIN URINE NEGATIVE (NEGATIVE); SPECIFIC GRAVITY URINE 1.011 (1.005-1.030); UROBILINOGEN URINE 0.2 E.U./dL (0.2-1.0)
[2019-07-24 11:13] LABS: PLATELET ESTIMATE NORMAL
[2019-07-24] MEDS ORDERED: POTASSIUM CHLORIDE 20MEQ TABLET SR PO ONE (11:30)
[2019-07-24 11:40] VITALS: BP 118/78
[2019-07-24 12:41] LABS: *BARBITURATES SCREEN URINE NEGATIVE (NEGATIVE)
[2019-07-24 12:42] LABS: *AMPHETAMINES SCREEN URINE NEGATIVE (NEGATIVE); *COCAINE SCREEN URINE NEGATIVE (NEGATIVE); METHADONE URINE SCREEN NEGATIVE (NEGATIVE); OPIATES URINE SCREEN NEGATIVE (NEGATIVE); PHENCYCLIDINE URINE SCREEN NEGATIVE (NEGATIVE)
[2019-07-24 12:54] LABS: *BENZODIAZEPINES SCREEN URINE PRESUMTIVE POSITIVE (NEGATIVE); CANNABINOID URINE SCREEN PRESUMTIVE POSITIVE (NEGATIVE)
== END 2019-07-24 13:08 | disposition home or self-care (01) ==
LOC: ER 08:56
DX: G40.919 Epilepsy, unspecified, intractable, without status epilepticus (principal); I10 Essential (primary) hypertension; Z88.8 Allergy status to other drugs, medicaments and biological substances; Z79.899 Other long term (current) drug therapy
CPT/HCPCS: 36415; 80053; 80305; 80320; 81003; 85025; 96374; 96375; 99284; J1953; J3360; J7030; G0480

== ENCOUNTER 2019-07-30 14:55 | Emergency (ER) | payer MEDICAID ==
[~2019-07-30] VITALS: Ht 165.1 cm; Wt 59.0 kg
[2019-07-30] MEDS ORDERED: SODIUM CHLORIDE 0.9% 1,000 ML IV ONE (15:06)
[2019-07-30] MEDS ORDERED: ONDANSETRON HCL 4MG/2ML INJ IV STA (15:06)
[2019-07-30] MEDS ORDERED: LEVETIRACETAM 1000MG/100ML 100 ML IV ONE (15:15)
[2019-07-30 16:03] LABS: CHLORIDE 109 mEq/L (98-107)
[2019-07-30 16:06] LABS: EOSINOPHILS % 2.4 % (0.0-5.0); HEMATOCRIT. 36.6 % (36.0-48.0); HEMOGLOBIN. 12.3 g/dL (12.0-16.0); MEAN CORPUSCULAR VOLUME 86.4 fL (81.0-99.0); NEUTROPHILS % 45.6 % (40.0-76.0); PLATELET 222 x1000/uL (130-400); RED BLOOD CELL COUNT 4.24 mill/uL (4.2-5.4); RED CELL DISTRIBUTION WIDTH 15.7 % (11.6-14.6)
[2019-07-30 16:07] LABS: ETHANOL BLOOD 255 mg/dL
[2019-07-30 16:39] VITALS: BP 126/84
[2019-07-30 16:48] LABS: CLARITY URINE CLEAR (CLEAR); COLOR URINE YELLOW (YELLOW); KETONES URINE NEGATIVE (NEGATIVE); LEUKOCYTE ESTERASE URINE NEGATIVE (NEGATIVE); NITRITE URINE NEGATIVE (NEGATIVE); OCCULT BLOOD URINE NEGATIVE (NEGATIVE); PH URINE 6.5 (4.5-8.0); PROTEIN URINE NEGATIVE (NEGATIVE); SPECIFIC GRAVITY URINE 1.005 (1.005-1.030); UROBILINOGEN URINE 0.2 E.U./dL (0.2-1.0)
[2019-07-30 16:58] LABS: *AMPHETAMINES SCREEN URINE NEGATIVE (NEGATIVE); PHENCYCLIDINE URINE SCREEN NEGATIVE (NEGATIVE)
[2019-07-30 16:59] LABS: *BARBITURATES SCREEN URINE NEGATIVE (NEGATIVE); *COCAINE SCREEN URINE NEGATIVE (NEGATIVE); METHADONE URINE SCREEN NEGATIVE (NEGATIVE); OPIATES URINE SCREEN NEGATIVE (NEGATIVE)
[2019-07-30 17:01] LABS: *BENZODIAZEPINES SCREEN URINE PRESUMTIVE POSITIVE (NEGATIVE); CANNABINOID URINE SCREEN PRESUMTIVE POSITIVE (NEGATIVE)
== END 2019-07-30 17:38 | disposition home or self-care (01) ==
LOC: ER 14:55
DX: G40.909 Epilepsy, unspecified, not intractable, without status epilepticus (principal); I10 Essential (primary) hypertension; F99 Mental disorder, not otherwise specified; Z88.8 Allergy status to other drugs, medicaments and biological substances
CPT/HCPCS: 36415; 80053; 80185; 80305; 80320; 81003; 81025; 85025; 96365; 96375; 99284; J1953; J2405; J7030; G0480

== ENCOUNTER 2019-08-27 20:09 | Emergency (ER) | payer MEDICAID ==
[~2019-08-27] VITALS: Ht 167.6 cm; Wt 75.0 kg
[~2019-08-27 20:09] MED LIST changes: -FLUC100T PO
[2019-08-27] MEDS ORDERED: LEVETIRACETAM 1000MG/100ML 100 ML IV ONE (21:15)
[2019-08-27] MEDS ORDERED: SODIUM CHLORIDE 0.9% 1,000 ML IV ONE (21:15)
[2019-08-27 21:27] LABS: HEMATOCRIT. 34.5 % (36.0-48.0); HEMOGLOBIN. 11.2 g/dL (12.0-16.0); MEAN CORPUSCULAR HEMOGLOBIN 28.3 pg (28.0-32.0); MEAN CORPUSCULAR VOLUME 86.7 fL (81.0-99.0); MEAN PLATELET VOLUME 8.5 fl (7.4-10.4); PLATELET 296 x1000/uL (130-400); RED BLOOD CELL COUNT 3.97 mill/uL (4.2-5.4); RED CELL DISTRIBUTION WIDTH 15.8 % (11.6-14.6)
[2019-08-27 21:36] LABS: CHLORIDE 105 mEq/L (98-107)
[2019-08-27 21:40] LABS: ETHANOL BLOOD 69 mg/dL
[2019-08-27 22:18] LABS: PLATELET ESTIMATE NORMAL
[2019-08-27 22:35] LABS: CLARITY URINE CLOUDY (CLEAR); COLOR URINE YELLOW (YELLOW); KETONES URINE 3+ (NEGATIVE); LEUKOCYTE ESTERASE URINE NEGATIVE (NEGATIVE); NITRITE URINE NEGATIVE (NEGATIVE); OCCULT BLOOD URINE TRACE (NEGATIVE); PROTEIN URINE 1+ (NEGATIVE); UROBILINOGEN URINE 0.2 E.U./dL (0.2-1.0)
[2019-08-27 22:45] LABS: METHADONE URINE SCREEN NEGATIVE (NEGATIVE); OPIATES URINE SCREEN NEGATIVE (NEGATIVE); PHENCYCLIDINE URINE SCREEN NEGATIVE (NEGATIVE)
[2019-08-27 22:46] LABS: *AMPHETAMINES SCREEN URINE NEGATIVE (NEGATIVE); *BARBITURATES SCREEN URINE NEGATIVE (NEGATIVE); *COCAINE SCREEN URINE NEGATIVE (NEGATIVE)
[2019-08-27 22:48] LABS: *BENZODIAZEPINES SCREEN URINE PRESUMTIVE POSITIVE (NEGATIVE); CANNABINOID URINE SCREEN PRESUMTIVE POSITIVE (NEGATIVE)
[2019-08-27] MEDS ORDERED: CHLORDIAZEPOXIDE 25MG CAPSULE PO ONE (23:15)
[2019-08-28 08:04] VITALS: BP 120/86
== END 2019-08-28 08:06 | disposition left against medical advice (07) ==
LOC: ER 20:09 → EDBEDREQ 08-28 01:36 → ER 08-28 08:06 → CANBEDREQ 08-28 08:15
DX: F10.239 Alcohol dependence with withdrawal, unspecified (principal); G40.509 Epileptic seizures related to external causes, not intractable, without status epilepticus; Y90.3 Blood alcohol level of 60-79 mg/100 ml; Z88.8 Allergy status to other drugs, medicaments and biological substances
CPT/HCPCS: 36415; 80053; 80305; 80320; 81003; 81025; 85025; 96365; 99285; J1953; J7030; G0480

== ENCOUNTER 2019-09-04 16:38 | Emergency (ER) | payer MEDICAID ==
[~2019-09-04] VITALS: Ht 162.6 cm; Wt 64.0 kg
[2019-09-04 20:14] VITALS: BP 160/87
[2019-09-04] MEDS ORDERED: LEVETIRACETAM 500MG PREMIX 100 ML IV ONE (20:45)
[2019-09-04 21:02] LABS: EOSINOPHILS % 1.4 % (0.0-5.0); HEMATOCRIT. 34.6 % (36.0-48.0); HEMOGLOBIN. 11.3 g/dL (12.0-16.0); LYMPHOCYTES % 30.3 % (20.0-50.0); MEAN CORPUSCULAR HEMOGLOBIN 28.1 pg (28.0-32.0); MEAN CORPUSCULAR VOLUME 85.7 fL (81.0-99.0); MEAN PLATELET VOLUME 7.9 fl (7.4-10.4); MONOCYTES % 8.2 % (2.0-8.0); NEUTROPHILS % 58.1 % (40.0-76.0); PLATELET 392 x1000/uL (130-400); RED BLOOD CELL COUNT 4.03 mill/uL (4.2-5.4); RED CELL DISTRIBUTION WIDTH 16.8 % (11.6-14.6)
[2019-09-04 21:14] LABS: CHLORIDE 112 mEq/L (98-107); INR 1.1; PROTHROMBIN TIME 11.4 sec (9.6-11.0)
[2019-09-04 21:18] LABS: ETHANOL BLOOD 193 mg/dL
== END 2019-09-04 21:37 | disposition left against medical advice (07) ==
LOC: ER 16:38
DX: G40.909 Epilepsy, unspecified, not intractable, without status epilepticus (principal); I10 Essential (primary) hypertension; Z88.8 Allergy status to other drugs, medicaments and biological substances; Z79.899 Other long term (current) drug therapy
CPT/HCPCS: 36415; 80053; 80320; 82962; 84146; 85025; 93005; 99283; G0480

== ENCOUNTER 2019-09-05 05:37 | Emergency (ER) | payer MEDICAID ==
[~2019-09-05] VITALS: Ht 170.2 cm; Wt 73.0 kg
[2019-09-05] MEDS ORDERED: HALOPERIDOL 5MG TABLET PO ONE (06:15)
[2019-09-05 07:03] LABS: CLARITY URINE CLOUDY (CLEAR); COLOR URINE YELLOW (YELLOW); KETONES URINE TRACE (NEGATIVE); LEUKOCYTE ESTERASE URINE 1+ (NEGATIVE); NITRITE URINE NEGATIVE (NEGATIVE); OCCULT BLOOD URINE NEGATIVE (NEGATIVE); PH URINE 7.5 (4.5-8.0); PROTEIN URINE NEGATIVE (NEGATIVE); SPECIFIC GRAVITY URINE 1.014 (1.005-1.030); UROBILINOGEN URINE 0.2 E.U./dL (0.2-1.0)
[2019-09-05 07:17] LABS: *BARBITURATES SCREEN URINE NEGATIVE (NEGATIVE)
[2019-09-05 07:18] LABS: *AMPHETAMINES SCREEN URINE NEGATIVE (NEGATIVE); *COCAINE SCREEN URINE NEGATIVE (NEGATIVE); METHADONE URINE SCREEN NEGATIVE (NEGATIVE); OPIATES URINE SCREEN NEGATIVE (NEGATIVE); PHENCYCLIDINE URINE SCREEN NEGATIVE (NEGATIVE)
[2019-09-05 07:21] LABS: *BENZODIAZEPINES SCREEN URINE PRESUMTIVE POSITIVE (NEGATIVE); CANNABINOID URINE SCREEN PRESUMTIVE POSITIVE (NEGATIVE)
[2019-09-05 08:01] LABS: BASOPHILS % 1.3 % (0.0-2.0); EOSINOPHILS % 0.7 % (0.0-5.0); HEMATOCRIT. 34.2 % (36.0-48.0); HEMOGLOBIN. 11.1 g/dL (12.0-16.0); LYMPHOCYTES % 27.3 % (20.0-50.0); MEAN CORPUSCULAR HEMOGLOBIN 27.7 pg (28.0-32.0); MEAN CORPUSCULAR VOLUME 85.1 fL (81.0-99.0); MEAN PLATELET VOLUME 7.3 fl (7.4-10.4); MONOCYTES % 9.1 % (2.0-8.0); NEUTROPHILS % 61.6 % (40.0-76.0); PLATELET 348 x1000/uL (130-400); RED BLOOD CELL COUNT 4.02 mill/uL (4.2-5.4)
[2019-09-05 08:08] LABS: CHLORIDE 110 mEq/L (98-107)
[2019-09-05 08:11] LABS: ETHANOL BLOOD 161 mg/dL
[2019-09-05] MEDS ORDERED: CEPHALEXIN 250MG CAPSULE PO ONE (08:15)
[2019-09-05] MEDS ORDERED: POTASSIUM CHLORIDE 20MEQ TABLET SR PO ONE (08:15)
[2019-09-05] MEDS ORDERED: CEFTRIAXONE 1 G PREMIX 50 ML IV ONE (08:30)
[2019-09-05] MEDS ORDERED: SODIUM CHLORIDE 0.9% 1000ML BAG (SEPSIS BOLUS) IV ONE (08:30)
[2019-09-05] MEDS ORDERED: SODIUM CHLORIDE 0.9% 1,000 ML IV ONE (13:03)
[2019-09-05] MEDS ORDERED: ACETAMINOPHEN 325MG TABLET PO PRN (18:15)
[2019-09-05] MEDS ORDERED: ONDANSETRON HCL 4MG/2ML INJ IV PRN (18:15)
[2019-09-05] MEDS ORDERED: HALOPERIDOL LACTATE 5MG/ML VIAL IM PRN (18:15)
[2019-09-05 18:35] VITALS: BP 126/69
[2019-09-05] MEDS ORDERED: FOLIC ACID 1 MG, THIAMINE HCL 100 MG, MVI, ADULT NO.1 10 ML in DEXTROSE 5% WATER 1,000 ML IV ONE ×4 (19:00)
== END 2019-09-05 18:50 | disposition left against medical advice (07) ==
LOC: ER 05:37 → CANBEDREQ 19:39
DX: T42.4X2A Poisoning by benzodiazepines, intentional self-harm, initial encounter (principal); N39.0 Urinary tract infection, site not specified; F45.8 Other somatoform disorders; E87.2 Acidosis; G40.909 Epilepsy, unspecified, not intractable, without status epilepticus; F12.10 Cannabis abuse, uncomplicated; F13.10 Sedative, hypnotic or anxiolytic abuse, uncomplicated; Y92.018 Other place in single-family (private) house as the place of occurrence of the external cause
CPT/HCPCS: 36415; 71045; 80053; 80305; 80320; 81003; 82962; 83605; 85025; 87040; 87086; 93005; 96365; 99291; J0696; J1630; J7030; J3411; J3490; J7070; G0480

== ENCOUNTER 2019-10-02 19:32 | Emergency (ER) | payer MEDICAID ==
[~2019-10-02] VITALS: Ht 170.2 cm; Wt 63.0 kg
[2019-10-02 19:34] VITALS: BP 130/84
== END 2019-10-02 20:55 | disposition left against medical advice (07) ==
LOC: ER 19:32
DX: R56.9 Unspecified convulsions (principal); I10 Essential (primary) hypertension; Z88.8 Allergy status to other drugs, medicaments and biological substances; Z79.899 Other long term (current) drug therapy
CPT/HCPCS: 93005; 99283

== ENCOUNTER 2019-12-21 11:57 | Emergency (ER) | payer MEDICAID ==
[~2019-12-21] VITALS: Ht 172.7 cm; Wt 58.0 kg
[2019-12-21 12:00] VITALS: BP 169/90
[2019-12-21] MEDS ORDERED: SODIUM CHLORIDE 0.9% 1,000 ML IV ONE (12:15)
== END 2019-12-21 12:50 | disposition left against medical advice (07) ==
LOC: ER 11:57
DX: G40.909 Epilepsy, unspecified, not intractable, without status epilepticus (principal); F91.8 Other conduct disorders; R03.0 Elevated blood-pressure reading, without diagnosis of hypertension; R00.0 Tachycardia, unspecified
CPT/HCPCS: 99283; J7030

== ENCOUNTER 2019-12-21 14:26 | Emergency (ER) | payer MEDICAID ==
[~2019-12-21] VITALS: Ht 162.6 cm; Wt 58.1 kg
[2019-12-21 14:28] VITALS: BP 114/78
== END 2019-12-21 14:50 | disposition left against medical advice (07) ==
LOC: ER 14:38
DX: G40.909 Epilepsy, unspecified, not intractable, without status epilepticus (principal); R45.1 Restlessness and agitation; F91.8 Other conduct disorders
CPT/HCPCS: 99283

== ENCOUNTER 2019-12-23 14:55 | Emergency (ER) | payer MEDICAID ==
[~2019-12-23] VITALS: Ht 165.1 cm; Wt 53.0 kg
[2019-12-23 14:59] VITALS: BP 143/93
== END 2019-12-23 16:31 | disposition left against medical advice (07) ==
LOC: ER 14:55
DX: R56.9 Unspecified convulsions (principal); Z53.29 Procedure and treatment not carried out because of patient's decision for other reasons
CPT/HCPCS: 93005; 99283

== ENCOUNTER 2019-12-24 03:56 | Emergency (ER) | payer MEDICAID ==
[~2019-12-24] VITALS: Ht 172.7 cm; Wt 63.0 kg
[2019-12-24 06:10] VITALS: BP 145/94
== END 2019-12-24 06:42 | disposition home or self-care (01) ==
LOC: ER 03:56
DX: G40.909 Epilepsy, unspecified, not intractable, without status epilepticus (principal); F91.8 Other conduct disorders; Z88.8 Allergy status to other drugs, medicaments and biological substances
CPT/HCPCS: 82962; 93005; 99283

== ENCOUNTER 2020-04-28 11:55 | Emergency (ER) | payer MEDICAID ==
[~2020-04-28] VITALS: Ht 167.6 cm; Wt 60.0 kg
[2020-04-28] MEDS ORDERED: LIDOCAINE HCL/PF 1% 10 MG/ML 5ML VIAL IJ ONE (12:30)
[2020-04-28] MEDS ORDERED: SODIUM CHLORIDE 0.9% 1,000 ML IV ONE (12:30)
[2020-04-28] MEDS ORDERED: BACITRACIN ZINC OINT UDPKT TOP ONE (12:30)
[2020-04-28] MEDS ORDERED: TETANUS, DIPHTHERIA, PERTUSSIS VAC/PF 0.5ML (>7YR OLD) IM ONE (12:30)
[2020-04-28 14:41] VITALS: BP 137/93
[2020-04-28] MEDS ORDERED: IBUPROFEN 400MG TABLET PO ONE (14:45)
== END 2020-04-28 14:50 | disposition home or self-care (01) ==
LOC: ER 11:55
DX: S01.511A Laceration without foreign body of lip, initial encounter (principal); S02.5XXA Fracture of tooth (traumatic), initial encounter for closed fracture; R55 Syncope and collapse; F10.10 Alcohol abuse, uncomplicated; Y90.6 Blood alcohol level of 120-199 mg/100 ml; I10 Essential (primary) hypertension; G40.909 Epilepsy, unspecified, not intractable, without status epilepticus; Z88.8 Allergy status to other drugs, medicaments and biological substances; Y04.0XXA Assault by unarmed brawl or fight, initial encounter; Y93.89 Activity, other specified; Y92.89 Other specified places as the place of occurrence of the external cause; Y99.8 Other external cause status
CPT/HCPCS: 12011; 70450; 82962; 90471; 90715; 93005; 99284; J3490; J7030; J7040; Z7610

== ENCOUNTER 2020-12-25 07:46 | Emergency (ER) | payer MEDICAID ==
[~2020-12-25] VITALS: Ht 167.6 cm; Wt 73.0 kg
[2020-12-25] MEDS ORDERED: ACETAMINOPHEN 325MG TABLET PO STA (08:08)
[2020-12-25] MEDS ORDERED: VISCOUS LIDOCAINE 2% 15 ML UDC PO STA (08:08)
[2020-12-25] MEDS ORDERED: MAGNESIUM/ALUMINUM HYDROXIDE/SIMETHICONE 30ML UDC PO STA (08:08)
[2020-12-25] MEDS ORDERED: ONDANSETRON HCL 4MG/2ML INJ IV STA (08:08)
[2020-12-25] MEDS ORDERED: SODIUM CHLORIDE 0.9% 1,000 ML IV ONE (08:15)
[2020-12-25] MEDS ORDERED: LEVETIRACETAM 500MG PREMIX 100 ML IV ONE ×2 (08:15)
[2020-12-25] MEDS ORDERED: FAMOTIDINE 20MG/2ML VIAL IV ONE (08:15)
[2020-12-25 08:48] LABS: HEMATOCRIT. 32.3 % (36.0-48.0); HEMOGLOBIN. 9.8 g/dL (12.0-16.0); MEAN CORPUSCULAR HEMOGLOBIN 23.6 pg (28.0-32.0); RED BLOOD CELL COUNT 4.14 mill/uL (4.2-5.4); RED CELL DISTRIBUTION WIDTH 18.2 % (11.6-14.6)
[2020-12-25 08:51] LABS: CHLORIDE 103 mEq/L (98-107)
[2020-12-25 08:55] LABS: ETHANOL BLOOD 80 mg/dL
[2020-12-25] MEDS ORDERED: DEXTROSE 50% WATER 50ML SYRINGE IV ONE (09:15)
[2020-12-25 09:19] LABS: PLATELET ESTIMATE NORMAL
[2020-12-25] MEDS ORDERED: DEXT 5%/0.9% NACL 1,000 ML IV NR (10:26)
[2020-12-25] MEDS ORDERED: PROCHLORPERAZINE 10MG/2ML VIAL IM NR (10:28)
[2020-12-25 10:52] LABS: HCG SCREEN POSITIVE
[2020-12-25 12:00] VITALS: BP 124/62
[2020-12-25] MEDS ORDERED: ONDA4TAB5 MT (13:22)
== END 2020-12-25 13:33 | disposition home or self-care (01) ==
LOC: ER 07:59
DX: R53.83 Other fatigue (principal); R11.2 Nausea with vomiting, unspecified; I10 Essential (primary) hypertension; Z79.899 Other long term (current) drug therapy
CPT/HCPCS: 36415; 71045; 76801; 76817; 80053; 80320; 82962; 84702; 84703; 85025; 86850; 86900; 86901; 93005; 96365; 96368; 96375; 99285; J1953; J2405; J3490; J7030; J0780; G0480

== ENCOUNTER 2021-02-23 12:28 | Emergency (ER) | payer MEDICAID ==
[~2021-02-23] VITALS: Ht 167.6 cm; Wt 59.0 kg
[~2021-02-23 12:28] MED LIST changes: +ONDA4TAB5 MT
[2021-02-23 12:31] VITALS: BP 144/106
[2021-02-23] MEDS ORDERED: LORAZEPAM 2MG/ML CPJ IV STA (13:09)
[2021-02-23] MEDS ORDERED: LEVETIRACETAM 500MG PREMIX 100 ML IV ONE ×2 (13:15)
[2021-02-23] MEDS ORDERED: SODIUM CHLORIDE 0.9% 1,000 ML IV ONE (13:15)
[2021-02-23] MEDS ORDERED: LORAZEPAM 2MG/ML CPJ IM ONE (13:15)
[2021-02-23 13:19] LABS: CLARITY URINE CLEAR (CLEAR); COLOR URINE YELLOW (YELLOW); KETONES URINE NEGATIVE (NEGATIVE); LEUKOCYTE ESTERASE URINE TRACE (NEGATIVE); NITRITE URINE NEGATIVE (NEGATIVE); OCCULT BLOOD URINE NEGATIVE (NEGATIVE); PROTEIN URINE NEGATIVE (NEGATIVE); SPECIFIC GRAVITY URINE 1.004 (1.005-1.030); UROBILINOGEN URINE 0.2 E.U./dL (0.2-1.0)
[2021-02-23] MEDS ORDERED: LORAZEPAM 2MG/ML CPJ ONE (13:19)
[2021-02-23] MEDS ORDERED: LACOSAMIDE 100 MG TABLET PO SCH (13:30)
[2021-02-23 13:43] LABS: OPIATES URINE SCREEN NEGATIVE (NEGATIVE)
[2021-02-23 13:44] LABS: *AMPHETAMINES SCREEN URINE NEGATIVE (NEGATIVE); *BARBITURATES SCREEN URINE NEGATIVE (NEGATIVE); *BENZODIAZEPINES SCREEN URINE NEGATIVE (NEGATIVE); *COCAINE SCREEN URINE NEGATIVE (NEGATIVE); PHENCYCLIDINE URINE SCREEN NEGATIVE (NEGATIVE)
[2021-02-23 13:45] LABS: METHADONE URINE SCREEN NEGATIVE (NEGATIVE)
[2021-02-23 13:54] LABS: CANNABINOID URINE SCREEN PRESUMTIVE POSITIVE (NEGATIVE)
[2021-02-23 14:57] LABS: HEMATOCRIT. 31.5 % (36.0-48.0); HEMOGLOBIN. 9.8 g/dL (12.0-16.0); MEAN CORPUSCULAR HEMOGLOBIN 22.8 pg (28.0-32.0); MEAN CORPUSCULAR VOLUME 73.1 fL (81.0-99.0); MEAN PLATELET VOLUME 7.9 fl (7.4-10.4); PLATELET 438 x1000/uL (130-400); RED CELL DISTRIBUTION WIDTH 20.2 % (11.6-14.6)
[2021-02-23 15:02] LABS: CHLORIDE 109 mEq/L (98-107); HCG SCREEN NEGATIVE
[2021-02-23 15:06] LABS: ETHANOL BLOOD 258 mg/dL
[2021-02-23 15:16] LABS: PLATELET ESTIMATE INCREASED
[2021-02-23] MEDS ORDERED: KEPP500 MT (17:04)
[2021-02-23] MEDS ORDERED: CHLORDIAZEPOXIDE 25MG CAPSULE PO ONE (17:15)
== END 2021-02-23 17:36 | disposition home or self-care (01) ==
LOC: ER 12:36 → CANBEDREQ 18:53
DX: T51.0X1A Toxic effect of ethanol, accidental (unintentional), initial encounter (principal); G40.909 Epilepsy, unspecified, not intractable, without status epilepticus; I10 Essential (primary) hypertension; Y90.8 Blood alcohol level of 240 mg/100 ml or more; Z88.5 Allergy status to narcotic agent; Y92.018 Other place in single-family (private) house as the place of occurrence of the external cause
CPT/HCPCS: 36415; 80053; 80305; 80307; 80320; 80329; 81003; 82140; 82962; 83605; 83690; 84443; 84703; 85025; 99283; J2060; J7030; 80339; G0480